=== PATIENT | female | born 1985 | race Caucasian/White ===

== ENCOUNTER 2021-02-10 10:16 | Emergency (ER) | payer SELFPAY ==
[2021-02-10 10:52] VITALS: BP 125/80; PULSE 72; TEMP 97.8; BMI 41.9
== END 2021-02-10 12:41 | disposition home or self-care (01) ==
LOC: JCOVINFU 10:16 → JER 10:16 → JCOVINFU 12:41
DX: R50.9 Fever, unspecified (principal); M79.10 Myalgia, unspecified site; Z11.52 Encounter for screening for COVID-19
CPT/HCPCS: 87804; 99283-25; C9803; U0003; U0005

== ENCOUNTER 2021-11-25 21:03 | Emergency (ER) | payer SELFPAY ==
[2021-11-25 21:08] VITALS: BP 131/88; PULSE 89; RESP 18; BMI 40.6
[2021-11-25] MEDS ORDERED: CEPHALEXIN MONOHYDRATE 500 MG CAPSULE (UD) PO ONE (22:31)
[2021-11-25] MEDS ORDERED: CEPHALEXIN MONOHYDRATE 500 MG CAPSULE (UD) ONE (22:33)
[2021-11-25] MEDS ORDERED: DIPHTH,PERTUSS(ACELL),TET 0.5 ML DISP.SYRIN IM ONE ×2 (22:37→22:41)
== END 2021-11-25 22:48 | disposition home or self-care (01) ==
LOC: JERFT 21:03
PROC: 0H9EXZZ Drainage of Left Lower Arm Skin, External Approach (ICD-10-PCS; principal; 2021-11-25)
PROC: 3E0234Z Introduction of Serum, Toxoid and Vaccine into Muscle, Percutaneous Approach (ICD-10-PCS; 2021-11-25)
DX: L02.414 Cutaneous abscess of left upper limb (principal)
CPT/HCPCS: 76882-TC-LT; 90715; 99284-25

== ENCOUNTER 2021-11-28 18:42 | Emergency (ER) | payer SELFPAY ==
[2021-11-28 18:53] VITALS: BP 138/89; PULSE 69; RESP 18; TEMP 98.2; BMI 41.8
[2021-11-28] MEDS ORDERED: BACITRACIN 15 GM TUBE TOPICAL OINTMENT ONE (20:06)
== END 2021-11-28 20:48 | disposition home or self-care (01) ==
LOC: JER 18:42 → JERFT 18:42
DX: Z48.00 Encounter for change or removal of nonsurgical wound dressing (principal)
CPT/HCPCS: 99282-25